=== PATIENT | female | born 1955 | race Two or more races ===

== ENCOUNTER 2020-05-09 12:02 | Outpatient (CLI) | payer OTHER | END 2020-05-09 12:07 | disposition home or self-care (01) | LOC: SONOGRAMA 12:02 | PROVIDERS: ATTEND Pathology Anatomic Pathology & Clinical Pathology | DX: E04.1 Nontoxic single thyroid nodule (principal) ==

== ENCOUNTER 2022-06-28 16:17 | Emergency (ER) | payer OTHER ==
[~2022-06-28] VITALS: Ht 182.9 cm; Wt 90.7 kg
[2022-06-28] MEDS ORDERED: FLUOXETINE HCL60 MG (16:27)
[2022-06-28] MEDS ORDERED: AVENTYL HCL25 MG (16:27)
[2022-06-28] MEDS ORDERED: HYDRALAZINE HCL25 MG (16:27)
[2022-06-28] MEDS ORDERED: CLONAZEPAM1 M1 (16:27)
[2022-06-28] MEDS ORDERED: TOPROL XL50 M1 (16:27)
[2022-06-28] MEDS ORDERED: TRAMADOL HCL E100 MG (16:27)
[2022-06-28] MEDS ORDERED: LIPITOR20 MG (16:27)
[2022-06-28] MEDS ORDERED: JANUMET 50-5001 EACH (16:28)
== END 2022-06-28 23:12 | disposition home or self-care (01) ==
LOC: ER 16:17
DX: R13.19 Other dysphagia (principal); Z88.2 Allergy status to sulfonamides; Z88.6 Allergy status to analgesic agent; Z88.1 Allergy status to other antibiotic agents; Z20.822 Contact with and (suspected) exposure to COVID-19